=== PATIENT | female | born 2000 | race Two or more races ===

== ENCOUNTER 2024-06-08 20:36 | Emergency (ER) | payer OTHER ==
[~2024-06-08] VITALS: Ht 170.2 cm; Wt 60.8 kg
--- NOTE | 2024-06-08 20:59 | ED.PDOC ---
HPI Comments 23 year old female presents to the ED with a chief complaint of chest wall pain s/p injury onset today around 12:00. Patient was snowboarding, when she tried to jump over a wood box, landed on her chest and is currently experiencing chest pain worsen with deep breaths. Rates pain a 6/10. Denies any PMHx as well as LOC, dizziness, nausea, vomiting, diarrhea, fever, chills, headache, head injury. No other symptoms or modifying factors present at this time. Chief Complaint: Chest Wall Injury Time Seen by MD: 20:47 Reviewed Notes: Medications, Allergies Allergies: Coded Allergies: NO KNOWN ALLERGIES (Unverified , 06/08/24) Information Source: Patient Mode of Arrival: Ambulatory Severity: Moderate Timing: Hours Duration: Since onset Prehospital treatment: None Location: Substernal Quality: Sharp Onset: Other Cardiac Risk Factors: None PE Risk Factors: Recent Trauma History of: None Modifying Factors: Nothing Past Medical History PAST MEDICAL HISTORY: Denies INCOME TAX RETURN PREPARER History: No Pertinent INCOME TAX RETURN PREPARER History Family History Family History: Reviewed,noncontributory to illness, No family hx of Cancer, No family hx of DM, No family hx of Heart lacey, No family hx of HTN, No family hx ofKidney lacey, No family hx of Liver lacey, No family hx of Lung lacey, No family hx of Stroke Social History Smoker: Non-Smoker Alcohol: Denies ETOH Use Drugs: Denies Drug Use Lives In: Home Constitutional: denies: chills, diaphoresis, fatigue, fever, malaise, sweats, weakness, others EENTM: denies: blurred vision, double vision, ear bleeding, ear discharge, ear drainage, ear pain, ear ringing, eye pain, eye redness, hearing loss, mouth pain, mouth swelling, nasal discharge, nose bleeding, nose congestion, nose pain, photophobia, tearing, throat pain, throat swelling, voice changes, others Respiratory: denies: cough, hemoptysis, orthopnea, SOB at rest, shortness of breath, SOB with excertion, stridor, wheezing, others Cardiovascular: reports: chest pain; denies: dizzy spells, diaphoresis, Dyspnea on exertion, edema, irregular heart beat, left arm pain, lightheadedness, palpitations, PND, syncope, others Gastrointestinal: denies: abdomen distended, abdominal pain, blood streaked bowels, constipated, diarrhea, dysphagia, difficulty swallowing, hematemesis, melena, nausea, poor appetite, poor fluid intake, rectal bleeding, rectal pain, vomiting, others Genitourinary: denies: abnormal vagina bleeding, burning, dyspareunia, dysuria, flank pain, frequency, hematuria, incontinence, pain, , vagina discharge, urgency, others Neurological: denies: dizziness, fainting, headache, left sided numbness, left sided weakness, numbness, paresthesia, pre-existing deficit, right sided n umbness, right sided weakness, seizure, speech problems, tingling, tremors, weakness, others Musculoskeletal: denies: back pain, gout, joint pain, joint swelling, muscle pain, muscle stiffness, neck pain, others Integumetry: denies: bruises, change in color, change in hair/nails, dryness, laceration, lesions, lumps, rash, wounds, others Allergic/Immunocompromised: denies: Difficulty Healing, Frequent Infections, Hives, Itching, others Hematologic/Lymphatic: denies: anemia, blood clots, easy bleeding, easy bruising, swollen glands, others Endocrine: denies: excessive hunger, excessive sweating, excessive thirst, excessive urination, flushing, intolerance to cold, intolerance to heat, unexplained weight gain, unexplained weight loss, others Psychiatric: denies: anxiety, bipolar disorder, depression, hopeless, panic disorder, schizophrenia, sleepless, suicidal, others All Other Systems: Reviewed and Negative Physical Exam General Appearance: No Apparent Distress, Normal HEENT: Normal ENT Inspection, Pharynx Normal, TMs Normal Neck: Full Range of Motion, Non-Tender, Normal, Normal Inspection Respiratory: Chest Non-Tender, Lungs Clear, No Accessory Muscle Use, No Respiratory Distress, Normal Breath Sounds Cardiovascular: No Edema, No JVD, No Murmur, No Gallop, Normal Peripheral Pulses, Regular Rate/Rhythm Breast Exam: Deferred Gastrointestinal: No Organomegaly, Non Tender, No Pulsatile Mass, Normal Bowel Sounds, Soft Genitalia: Deferred Pelvic: Deferred Rectal: Deferred Extremities: No calf tenderness, Normal capillary refill, Normal inspection, Normal range of motion, Non-tender, No pedal edema Musculoskeletal : Apperance: Normal Neurologic: Alert, cut filer II-XII nml as Tested, No Motor Deficits, Normal Affect, Normal Mood, No Sensory Deficits Cerebellar Function: Normal Reflexes: Normal Skin: Dry, Normal Color, Warm Lymphatic: No Adenopathy Was a procedure done? Was a procedure done?: No CP Differential Dx Differential Diagnosis: PVC's Differential Diagnosis: N/A Differential Diagnosis: Chest Wall Pain X-Ray, Labs, Meds, VS Vital Signs Date Time Temp Pulse Resp B/P (MAP) Pulse Ox O2 Delivery O2 Flow Rate FiO2 06/08/24 20:48 108 06/08/24 20:40 99.2 116 18 145/75 (98) 98 99.2 Time of 1ST Reevaluation: 21:17 Reevaluation 1ST: Unchanged Patient Education/Counseling: Diagnosis, Treatment, Prognosis Family Education/Counseling: No Family Present Additional Information The following tests were ordered, and results were reviewed by me: XY CHEST 2 VIEWS I reviewed and agreed with the following test results read by other providers: XY CHEST 2 VIEWS I discussed treatment and results with medical personnel and: Patient Comprehensive systems review obtained and negative except for what is stated in the HPI. Departure 1 Departure Time of Disposition: 23:05 (Patient without signs of heart problems. Likely with chest wall contusion following fall. Will discharge with outpatient follow up.) Impression: Primary Impression: Chest wall contusion Qualified Codes: S20.211A - Contusion of right front wall of thorax, initial encounter Disposition: HOME / SELF CARE / HOMELESS Condition: Stable Additional Instructions: Your workup is benign. You likely bruised your ribs. For pain you can take the followinam: Ibuprofen 400mg with food Noon: Acetaminophen 1000mg 4pm: Ibuprofen 400mg with food 8pm: Acetaminophen 1000mg You should follow up with your regular doctor within one week to ensure you are doing better. If your symptoms worsen or you have any other concerns then please return to the ER. Discharged With: Self Critical Care Note Critical Care Time?: No Stability Stability form required: No Heart Score Heart Score: Heart Score Response (Comments) Value History N/A 0 EKG N/A 0 Age N/A 0 Risk Factors N/A 0 Troponin N/A 0 Total 0 I personally scribed for BALAJI PETTIT MD ([email or web address]) on 06/08/24 at 20:59. Electronically submitted by Kalani Chau ([email or web address]). I personally scribed for BALAJI PETTIT MD ([email or web address]) on 06/08/24 at 21:11. Electronically submitted by Kalani Chau ([email or web address]). I personally scribed for BALAJI PETTIT MD ([email or web address]) on 06/08/24 at 21:39. Electronically submitted by Kalani Chau ([email or web address]). BALAJI PETTIT MD Jun 08, 2024 20:59
--- NOTE | 2024-06-08 21:10 | DVH ---
XY CHEST TWO VIEWS ROUTINE CLINICAL HISTORY: chest wall pain COMPARISON: None TECHNIQUE: Frontal and lateral view of the chest was obtained FINDINGS: Lines and Tubes: None Lungs: No focal consolidation. Pleura: No effusion. No pneumothorax. Cardiomediastinal contours: Unremarkable Bones: No acute osseous abnormality. IMPRESSION: No acute cardiopulmonary disease.
[2024-06-08 23:30] VITALS: RESP 14
[2024-06-08 23:36] VITALS: BP 141/78; PULSE 81; RESP 14; TEMP 98.2; O2SAT 96
[2024-06-08] MEDS: KETOROLAC TROMETH 30 MG/ML 1ML VIAL IM ONE (23:40)
[2024-06-08] MEDS: ACETAMINOPHEN 325 MG TAB PO ONE (23:40)
--- NOTE | 2024-06-09 06:26 | ECG ---
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
== END 2024-06-08 23:53 | disposition home or self-care (01) ==
LOC: ER 20:36
DX: S20.211A Contusion of right front wall of thorax, initial encounter (principal); R07.89 Other chest pain; X58.XXXA Exposure to other specified factors, initial encounter; Y93.89 Activity, other specified; Y92.89 Other specified places as the place of occurrence of the external cause; Y99.8 Other external cause status
CPT/HCPCS: 71046; 93005; 96372; 99283; J1885